=== PATIENT | male | born 1955 | race Caucasian/White ===

== ENCOUNTER 2016-07-15 12:19 | Emergency (ER) | payer MEDICAID ==
[2016-07-15] MEDS ORDERED: Lidocaine 2% Jelly 10 ML Urojet ONE (13:31)
[2016-07-15] MEDS ORDERED: LORazepam 2 MG/ML MDV IM ONE (14:04)
[2016-07-15] MEDS ORDERED: HYDROmorphone 1 MG/ML Syringe IM ONE (14:04)
--- NOTE | 2016-07-15 14:42 | EDM.PDOC ---
[id number] 4d PAIN Time Seen by Provider: 07/15/16 13:30 Source: Reports: Patient, Family History Limitations: Reports: No limitations - History of Present Illness INITIAL COMMENTS - FREE TEXT/NARRATIVE: 60-year-old male with urinary retention, he has been in the emergency room twice in the last several days for catheter placement. They are trying to set him up for a urology appointment later this week. He does not tolerate the catheter very well but is again struggling with urine retention. He came to [facility] because he doesn't feel any one was listening to him - Related Data Allergies/ADRs: Allergies Allergy/AdvReac Type Severity Reaction Status Date / Time No Known Allergies Allergy Verified 07/15/16 13:57 Home Meds: Home Meds Albuterol [IJD: Ventolin HFA] 2 puff INH .TWICE DAILY 07/15/16 [History] Docusate Sodium [Colace] 100 mg PO DAILY 07/15/16 [History] Furosemide [Lasix] 40 mg PO DAILY 07/15/16 [History] Insulin Glarg,Human.Rec.Analog [LantUS Solostar] 30 unit SQ BID 07/15/16 [ History] Insulin Lispro [HumaLOG] 1 unit SUBCUT QIDACANDBED 07/15/16 [History] Metoclopramide HCl [Reglan] 10 mg PO DAILY 07/15/16 [History] Mirtazapine [Remeron] 30 mg PO BEDTIME 07/15/16 [History] Morphine Sulfate 10 mg PO Q6H 07/15/16 [History] Multivitamin with Minerals [Multiple Vitamin] 1 tab PO DAILY 07/15/16 [History] Nadolol [Corgard] 40 mg PO DAILY 07/15/16 [History] Ondansetron [Zofran ODT] 1 tab PO Q6H 07/15/16 [History] Pantoprazole Sodium [Protonix] 40 mg PO DAILY 07/15/16 [History] Spironolactone [Aldactone] 100 mg PO DAILY 07/15/16 [History] Sulfamethoxazole/Trimethoprim [Septra DS] 1 tab PO DAILY 07/15/16 [History] Tamsulosin [Tamsulosin 24 Hr] 0.4 mg PO DAILY 07/15/16 [History] Ursodiol 300 mg PO BID 07/15/16 [History] ED ROS GENERAL - Review of Systems Review Of Systems: See Below Constitutional: Denies: fever, chills Respiratory: Denies: Shortness of Breath Cardiovascular: Denies: Chest pain GI/Abdominal: Reports: Abdominal pain : Reports: urgency, urinary retention Skin: Reports: no symptoms Psychiatric: Reports: Anxiety ED EXAM, RENAL/ - Physical Exam Exam: See Below Exam Limited By: No limitations General Appearance: alert, moderate distress (Patient is very uncomfortable) Respiratory/Chest: no respiratory distress Cardiovascular: regular rate, rhythm GI/Abdominal: distended (Distended lower abdomen from bladder retention), tender Neurological: alert, oriented Psychiatric: anxious Course - Vital Signs Last Recorded V/S: Last Vital Signs Temp 96.8 F 07/15/16 15:21 Pulse 92 07/15/16 15:43 Resp 20 07/15/16 15:21 BP 103/70 07/15/16 15:43 Pulse Ox 96 07/15/16 15:43 - Orders/Labs/Meds Meds: Medications Discontinued Medications Generic Name Dose Route Start Last Admin Trade Name Ric PRN Reason Stop Dose Admin Hydromorphone HCl 1 mg 07/15/16 14:04 07/15/16 14:26 Dilaudid IM 07/15/16 14:05 1 mg ONETIME ONE Administration Lidocaine HCl Confirm 07/15/16 13:31 07/15/16 14:25 Xylocaine 2% Jelly Administered 07/15/16 13:32 10 ml Dose Administration 10 ml .ROUTE .STK-MED ONE Lorazepam 1 mg 07/15/16 14:04 07/15/16 14:25 Ativan IM 07/15/16 14:05 1 mg ONETIME ONE Administration - Re-Assessments/Exams Free Text/Narrative Re-Assessment/Exam: 07/22/16 08:10 A Hunter catheter was placed without difficulty other than it was very painful for the patient. Almost 2 L of bolivar urine was produced. Even after the bladder was emptied the patient continued to be extremely anxious and agitated from discomfort. He was given IM Dilaudid and Ativan to calm him down which worked very well. I gave him some additional oral Ativan and Percocet to use for symptom control until he rechecks with urology later this week. Departure - Departure Time of Disposition: 16:36 Disposition: Home, Self-Care 01 Condition: fair Clinical Impression: Urine retention Instructions: Acute Urinary Retention, Male, [id number] Referrals: PCP,None [Primary Care Provider] - Forms: ED Department Discharge Care Plan Goals: Use pain and anxiety medicines sparingly if needed. Take one dose of antibiotic daily. Recheck with urology later this week, as soon as possible. You should try to keep tube in your bladder until your recheck and use medications to control symptoms if needed.
[2016-07-15 15:43] VITALS: BP 103/70
== END 2016-07-15 16:36 | disposition home or self-care (01) ==
LOC: JP.ED 12:19
DX: R33.9 Retention of urine, unspecified (principal); F41.9 Anxiety disorder, unspecified; F32.9 Major depressive disorder, single episode, unspecified; J44.9 Chronic obstructive pulmonary disease, unspecified; Z79.4 Long term (current) use of insulin; Z79.899 Other long term (current) drug therapy
CPT/HCPCS: 51702; 96372; 99283; J1170; J2060

== ENCOUNTER 2016-09-05 21:09 | Emergency (ER) | payer MEDICAID ==
[2016-09-05 22:53] VITALS: BP 115/77
[2016-09-06] MEDS ORDERED: HYDROmorphone 1 MG/ML Syringe IM ONE (00:29)
--- NOTE | 2016-09-06 00:40 | EDM.PDOC ---
ED HPI GENERAL MEDICAL PROBLEM - General Chief Complaint: General Stated Complaint: belly pain Time Seen by Provider: 09/06/16 00:21 Source of Information: Reports: Patient History Limitations: Reports: No Limitations - History of Present Illness INITIAL COMMENTS - FREE TEXT/NARRATIVE: History of present illness: [This 60-year-old man with a history of cirrhosis and ascites stopped in our ER with a friend on his way to [place] where he lives, from some other place. He comes in complaining of abdominal pain and as a result of ascites. His friend is driving the vehicle but he feels like he can't go on as he gets something for his pain. he's had no fevers or chills nausea vomiting constipation or diarrhea. He apparently hasn't had paracentesis tender 12 times so far in the course of his cirrhosis with ascites. Most of these done in [place] where he lives.] Review of systems: As per history of present illness and below otherwise all systems reviewed and negative. Past medical history: As per history of present illness and as reviewed below otherwise noncontributory. Surgical history: As per history of present illness and as reviewed below otherwise noncontributory. Social history: No reported history of drug or alcohol abuse. Family history: As per history of present illness and as reviewed below otherwise noncontributory. Physical exam: HEENT: Atraumatic, normocephalic, pupils reactive, negative for conjunctival pallor or scleral icterus, mucous membranes moist, throat clear, neck supple, nontender, trachea midline. Lungs: Clear to auscultation, breath sounds equal bilaterally, chest nontender. Heart: S1S2, regular, negative for clicks, rubs, or JVD. Abdomen: Patient does have ascites present but it is not tense his abdomen is not warm and he is afebrile with stable vital signs. Pelvis: Stable nontender. Genitourinary: Deferred. Rectal: Deferred. Extremities: Atraumatic, negative for cords or calf pain. Neurovascular unremarkable. Neuro: Awake, alert, oriented. Exam nonfocal. Diagnostics: [] Therapeutics: [] Impression: [Ascites with abdominal pain] Plan: [He's given Dilaudid 0.5 mg IM and will be heading home to [place] where he is better now and will get the procedure done there with the doctors who are familiar with him.] Definitive disposition and diagnosis as appropriate pending reevaluation and review of above. Abdomen Pain Score (Numeric/FACES): 8 - Related Data Allergies Allergy/AdvReac Type Severity Reaction Status Date / Time No Known Allergies Allergy Verified 07/15/16 13:57 Home Meds: Home Meds Albuterol [IJD: Ventolin HFA] 2 puff INH .TWICE DAILY 07/15/16 [History] Docusate Sodium [Colace] 100 mg PO DAILY 07/15/16 [History] Furosemide [Lasix] 40 mg PO DAILY 07/15/16 [History] Insulin Glarg,Human.Rec.Analog [LantUS Solostar] 30 unit SQ BID 07/15/16 [ History] Insulin Lispro [HumaLOG] 1 unit SUBCUT QIDACANDBED 07/15/16 [History] Metoclopramide HCl [Reglan] 10 mg PO DAILY 07/15/16 [History] Mirtazapine [Remeron] 30 mg PO BEDTIME 07/15/16 [History] Morphine Sulfate 10 mg PO Q6H 07/15/16 [History] Multivitamin with Minerals [Multiple Vitamin] 1 tab PO DAILY 07/15/16 [History] Nadolol [Corgard] 40 mg PO DAILY 07/15/16 [History] Ondansetron [Zofran ODT] 1 tab PO Q6H 07/15/16 [History] Pantoprazole Sodium [Protonix] 40 mg PO DAILY 07/15/16 [History] Spironolactone [Aldactone] 100 mg PO DAILY 07/15/16 [History] Sulfamethoxazole/Trimethoprim [Septra DS] 1 tab PO DAILY 07/15/16 [History] Tamsulosin [Tamsulosin 24 Hr] 0.4 mg PO DAILY 07/15/16 [History] Ursodiol 300 mg PO BID 07/15/16 [History] Past Medical History HEENT History: Reports: Impaired Vision Respiratory History: Reports: COPD Gastrointestinal History: Reports: Other (See Below) Other Gastrointestinal History: esopageal varacisis Stomache infection all the time Genitourinary History: Reports: Other (See Below) Other Genitourinary History: Recent urinary retention. Musculoskeletal History: Reports: Back Pain, Chronic Other Musculoskeletal History: l wrist fx x2 fx femur 5th metatarsal Neurological History: Reports: CVA Other Neuro History: Mini stroke 1982 Psychiatric History: Reports: Anxiety, Depression, PTSD Endocrine/Metabolic History: Reports: Diabetes, Type II Hematologic History: Reports: Blood Transfusion(s) Oncologic (Cancer) History: Reports: Other (See Below) Other Oncologic History: cirrohsis of the liver - Infectious Disease History Infectious Disease History: Reports: Other (See Below) Other Infectious Disease History: pt. does not remember - Past Surgical History HEENT Surgical History: Reports: Other (See Below) GI Surgical History: Reports: Colonoscopy, Other (See Below) Musculoskeletal Surgical History: Reports: Other (See Below) Social & Family History - Tobacco Use Smoking Status *Q: Current Every Day Smoker Years of Tobacco use: 49 Packs/Tins Daily: 1 Used Tobacco, but Quit: No Second Hand Smoke Exposure: Yes - Caffeine Use Caffeine Use: Reports: Coffee, Soda, Tea - Recreational Drug Use Recreational Drug Use: No Drug Use in Last 12 Months: Yes Recreational Drug Type: Reports: Marijuana/Hashish Recreational Drug Use Frequency: Daily ED ROS GENERAL - Review of Systems Review Of Systems: See Below ED EXAM, GENERAL - Physical Exam Exam: See Below Course - Vital Signs Last Recorded V/S: Last Vital Signs Temp 36.2 C 09/05/16 22:23 Pulse 96 09/05/16 22:52 Resp 16 09/05/16 22:52 BP 115/77 09/05/16 22:52 Pulse Ox 98 09/05/16 22:52 - Orders/Labs/Meds Meds: Medications Discontinued Medications Generic Name Dose Route Start Last Admin Trade Name Ric PRN Reason Stop Dose Admin Hydromorphone HCl 0.5 mg 09/06/16 00:29 Dilaudid IM 09/06/16 00:30 ONETIME ONE Departure - Departure Time of Disposition: 00:39 Disposition: Home, Self-Care 01 Condition: good Clinical Impression: Ascites, Abdominal pain - Discharge Information Forms: ED Department Discharge Additional Instructions: Please followup with your doctors in [place] for management of your cirrhosis and ascites. I wish you well.
== END 2016-09-06 01:02 | disposition home or self-care (01) ==
LOC: JP.ED 21:09
DX: R18.8 Other ascites (principal); R10.9 Unspecified abdominal pain; J44.9 Chronic obstructive pulmonary disease, unspecified; G89.29 Other chronic pain; M54.9 Dorsalgia, unspecified; E11.9 Type 2 diabetes mellitus without complications; F17.210 Nicotine dependence, cigarettes, uncomplicated; Z86.73 Personal history of transient ischemic attack (TIA), and cerebral infarction without residual deficits; Z79.899 Other long term (current) drug therapy; Z79.4 Long term (current) use of insulin
CPT/HCPCS: 96372; 99284; J1170